=== PATIENT | male | born 1970 | race Caucasian/White ===

== ENCOUNTER → 2018-05-11 16:57 | Outpatient (CLI) | payer OTHER, SELFPAY ==
--- NOTE | 2018-05-11 16:59 | MRI_ITS ---
STUDY: MRI THORACIC SPINE WITHOUT CONTRAST REASON FOR EXAM: Male, 47 years old. Left subscapular back pain. TECHNIQUE: Standardized fat and water weighted pulse sequences were obtained in the sagittal and axial planes. COMPARISON: None. FINDINGS: Normal thoracic kyphosis. No scoliosis. Normal visualized thoracic cord. Normal conus medullaris that terminates at the T12-L1 level. T6-7: There is a small, central disc protrusion causing minimal indentation of the ventral thoracic cord. Remaining levels show no evidence of disc protrusion. Thoracic canal is normal in caliber. Foramina are patent at all thoracic levels. Degenerative disc changes are noted from T6 through T12. Multilevel Schmorl's nodes are noted. The soft tissue structures are unremarkable. MRI/Spine Thoracic (Routine) IMPRESSION: 1. Small disc protrusion at T6-7 with minimal cord indentation. 2. Mild degenerative disc changes. Electronically Signed: Sandy Garrison MD at 22:49 EST Tel , Service support ,
== END ==
PROVIDERS: Family Provider Family Medicine; PCP Family Medicine; Referring Provider Chiropractor; Visit Provider Chiropractor
DX: S23.3XXA Sprain of ligaments of thoracic spine, initial encounter (principal); S29.012A Strain of muscle and tendon of back wall of thorax, initial encounter
CPT/HCPCS: 72146

== ENCOUNTER 2018-09-07 13:14 | Outpatient (RCR) | payer OTHER, SELFPAY ==
--- NOTE | 2018-09-10 09:34 | HP.OTFCE_ITS ---
HP OT Functional Capacity Eval - Task Lift Floor (Occasional 1-33% of Day): 75 Floor (Frequent 34-66% of Day): 40 Floor (Constant 67-100% of Day): 16 Floor PDL: Medium-Heavy Knee (Occasional 1-33% of Day): 75 Knee (Frequent 34-66% of Day): 40 Knee (Constant 67-100% of Day): 16 Knee PDL: Medium-Heavy Waist (Occasional 1-33% of Day): 65 Waist (Frequent 34-66% of Day): 32 Waist (Constant 67-100% of Day): 13 Waist PDL: Medium Shoulder (Occasional 1-33% of Day): 65 Shoulder (Frequent 34-66% of Day): 40 Shoulder (Constant 67-100% of Day): 13 Shoulder PDL: Medium Overhead (Occasional 1-33% of Day): 50 Overhead (Frequent 34-66% of Day): 35 Overhead (Constant 67-100% of Day): 14 Overhead PDL: Medium Comments: Mild compensations noted with some of the tasks. Please refer below for further detail. - Work Activity/Posture Bending: Frequent Ability (34-66% of day) Squatting: Frequent Ability (34-66% of day) Kneeling: Frequent Ability (34-66% of day) Reaching out: Frequent Ability (34-66% of day) Reaching up: Frequent Ability (34-66% of day) Sitting: Frequent Ability (34-66% of day) Walking: Frequent Ability (34-66% of day) Standing: Frequent Ability (34-66% of day) - Reference Duration Sedentary Sedentary Light Light Light Medium Medium Medium Heavy Very Heavy Heavy Occasional (0-33% of day) Frequent (34-66% of day) Constant (67-100% of day) 10 # Negligible Negligible 15 # 8 # Negligible 20 # 10# Negli. 35 # 18 # 7 # 50 # 25 # 10 # 75 # 100 # >100 # 38 # 50 # >50 # 15 # 20 # >20 # - Patient Information Height: 1.78 m Weight:: 90.718 kg Hand Dominance: R BP (Medication Use/Usual Values per pt report): no - Medical History Medical History Including Restrictions: No medical restrictions provided by do shanel. Nicholas noted he called and doctor wanted to get 'baseline assessment' via patient report from Dr. Boyd (orthopedist he is seeing for back). He was referred for functional capacity evaluation by pain management Dr. Corbett. - Diagnoses Diagnoses: Current: Antione Salgado was injured while at work in December 2016 and most recently on February 20 2018. He noted he sprained thoracic spine both times while at work while lifting 40 lbs boxes of powder. His most recent injury occurred while he noted was working at [employer] on a new account for [employer]. Nicholas explained he had to had 40 lb. box on shoulder, was climbing up ladder that is attached to tank of sour cream, and was pouring mixture in sour cream one handful at a time. He noted having to climb 5 rungs to platform. He explained he moved wrong and sprained back. With further MRI confirmation of sprain of thoracic ligaments with small disc protrusion of T6-T7 with minimal cord and spine degenerative changes noted from T6-T12. Past Medical History (PMHx): Noted no significant past medical history. Did have past rotator cuff injury in 2010 to right shoulder. Current Medications: Nicholas noted he was not previously on medications until last week after following up with pain doctor, Dr. Corbett. He did not take medications prior to completing evaluation today. He did bring medications if needed but noted ' I think I can wait until afterwards'. The following are the listed medications he is currently talking: Medications. - meloxicam 7.5 mg 1x. 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 Generally, he noted having to lift between 20-60 lbs. According to job description provided by patient he needs to be willing to 60 on 'regular basis'. Further, Nicholas noted he frequently is standing throughout the day. He explained he stands for about 2 hours with 1x 15 min break, then 2 hours with 30 minutes lunch break, and then 2 hours 15 min break and 2 more hours prior to completing shift. He noted he has been on short term disability, [employer], since June 11, 2018. - Pain Pain: Nicholas is on pain management program with Dr. Corbett at [facility]. He noted directly after first work injury in 2016 that he started seeing Dr. Cash (chiropractor) for help with spine related pain and alignment. He explained Dr. Cash completed spine manipulation and ultrasound techniques which helped him heal. He noted after reinjury in 2018 he again started seeing Dr. Cash for three months but was not making progress and she referred for MRI which showed slight bulging disc at T6 to T7 and degenerative changes. He explained he was further referred to [facility] in which he saw Dr. Boyd who completed a cortisone injection around top of thoracic spine. Noted cortisone did not help and Dr. Boyd also referred to Dr. Corbett. Dr. Corbett has been completing injections which seemed to help per patient report and he has further injection scheduled for this . He did not receive physical therapy and was not referred by physicians and was instructed to complete rest to help thoracic spine heal. Pain at beginning of session with use of functional pain scale: 6/10 pain. Pain at ending of session with use of functional pain scale: 3/10. Pain: Yusra Pain Questionnaire is a self-report pain assessment to determine a patient?s accurate psychodynamics for accurate pain rating. A score of 30 or higher indicates poor psychodynamics and the greater probability of decreased accuracy with accurate pain reporting. Day 1: Pre- Yusra: 22. Post Yusra: 12. Some discrepancies as pain was reduced post evaluation. Nicholas did explain that standing and movement helps to manage pain symptoms and sitting typically increased symptoms. Both scores indicate good psychodynamics for pain reporting. Fear Avoidance Questionnaire (FAQ) is a client self-report assessment for 18-64+ that has shown to be reliable and valid for determining increased fear with movements. A score of 96 or higher indicates increased fear avoidance behaviors. FAQ Pre-testing: - Total: 59. - Physical Activity Subscale: 14. - Work Subscale: 27. FAQ Post testing: - Total: 55. - Physical Activity Subscale: 13. - Work Subscale: 25. Oswestry Neck and Low back questionnaire is a self-report assessment in which patients report their perceived level of disability based on their perceived pain. Oswestry : 15/50= 30 % impairment. Nicholas indicated good reliability of pain reporting based on assessment and reporting during session. - Work History Work History: Nicholas is currently on short-term disability from the [employer]. He noted he had been on Short-term disability since May,. 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 He provided job description for both. He explained he lifts between 20-60 lbs and is required to carry a load of 20-60 lbs up a ladder of 4-8 rungs to complete dumping into the tank. Nicholas further explained he works 8 hour shifts with 2x 15 min breaks and on 30 min break for lunch. Nicholas explained he stands for about two hours straight then receives first 15 min break, he works two more hours and receives 30-minute lunch break, then two hours followed by another 15 minutes break and then two hours and shift is completed. According to job description provided he is to be able to ?frequently? lift 60 lbs throughout the work day. - Behavioral Behavioral: Nicholas appeared motivated to go back to work but did voice concerns of ' I don't want to keep masking the pain and have it get worse' in regards to thoracic spine. He noted injections he has been receiving from Dr. Corbett have been helping but pain remains and issue with repetitive activities. - ADLS ADLS: Lives in split level home with . He has 6 steps to get into home and the 6 steps to get to top floor. He is still driving and completing all self- care at this time. He noted that he helps care for 20 lbs dog. He is currently on short-term disability through [employer] due to injury occurring in May,. - Physical Examination Physical Examination: The purpose of this functional capacity evaluation (FCE) was to determine Nicholas?s physical ability. 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 Aerobic limiting factor: 85% of max adjust HR= (220-age(47)) *.85= 147 bpm. Calculated max weight: 60% of weight= 120 lbs. Starting diagnostics. Blood Pressure: 114/83 mmHg. Heart rate: 82 bpm. Pulse Oximeter: 96% at room temperature ROM: Range of Motion: Thoracolumbar Spine with goniometer: -Flexion: 0-40. - Lateral rotation: R 0-82 , L 0-105. Thoracic spine with use of inclinometer: -Flexion: T1 0-139 , T12 0-125. oTotal flexion: ?10 degrees: 14 degrees. - Extension: T1 0-41 , LT12 0-19. oTotal extension: ?10 degrees: 22 degrees. Some tightness noted around thoracic spine with palpation. Noted no increased tenderness until upper thoracic spine. Nicholas explained tenderness to be 'mild' and not as serve as previous assessment with doctors. Some increased tightness with rotation to right side. 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 Strength: Strength: Strength measurements completed with use of manual muscle testing and short arm access of dynamometer. Results are as follows: Upper Body: Shoulder flexion: R 4+/5, L 5/5. Shoulder extension: R 4+/5, L 5/5. Shoulder abduction: R 5/5, L 5/5. Shoulder adduction: R 5/5, L 5/5. Shoulder Internal Rotation: R 5/5, L 5/5. Shoulder External Rotation: R 5/5, L 5/5. Elbow flexion: R 5/5, L 5/5. Elbow extension: R 5/5, L 5/5. Lower Body: Hip flexion: R 5/5, L 5/5. Hip adduction: R 5/5, L 5/5. Hip abduction: R 5/5, L 5/5. Knee Flexion: R 5/5, L 5/5. Knee extension: R 5/5, L 5/5. Plantarflexion: R 5/5, L 5/5. Dorsiflexion: R 5/5, L 5/5. Nicholas exhibited good rotator cuff integrity based empoty can tests. He hold with applied resistance and muscle do not break easily when reistsance is palced on them with manual muscle testing. Right Grades 1 Through 6 Teacher Strength Average: 99.66 Right Grades 1 Through 6 Teacher Strength Percentile: above 100th Left Grades 1 Through 6 Teacher Strength Average: 97.33 Left Grades 1 Through 6 Teacher Strength Percentile: above 100th Right Lateral Pinch Average: 25.00 Right Lateral Pinch Percentile: 90 th Left Lateral Pinch Average: 22.33 Left Lateral Pinch Percentile: 75 th Right Tripod Pinch Average: 29.33 Right Tripod Pinch Percentile: above 90th Left Tripod Pinch Average: 22.66 Left Tripod Pinch Percentile: 90 th Comments: The above disaster recovery coordinator and pinch testing were consistent in effort as the coefficient of variation is below 15% of all. Five Span Grades 1 Through 6 Teacher testing on Dynamometer: Position 1: R 64 , L 49. Position 2: R 123 , L 100. Position 3: R 120 , L 114. Position 4: R 110 , L 105. Position 5: R 97 , L 85. A coefficient of variation greater than 15 % indicated decreased consistency of effort. Coefficient of variation: R .233= 23%, L .282= 28%. Consistency of Effort: inconsistent effort Sensation: Sensory Testing: Sensation testing completed on bilateral hands/ feet with monofilament touch test. A score of normal on touch test is 2.83 and within normal range with just some discrepancies for light touch is between 3.22-3.61. The higher the number in more complications related to patient?s ability to perceive touch related sensory stimuli. R hand: 2nd 2.83 , 3rd 2.83 , 4th 3.22 , 5th 2.83 , thumb 2.83. L hand: 2nd 2.83 , 3rd 2.83 , 4th 2.83 , 5th 2.83 , thumb 2.83. Denies numbness and tingling in toes. Noted no current numbness around rib area. Fine Motor: Fine motor: Completed the Purdue Pegboard test to further determine the patient?s ability to complete 2-3 step tasks, assess fine motor control and general dexterity needed to complete assembly like work. The results are as follows for one trial only: Right Hand: 15. -Percentile: 42 nd. Left Hand: 14. -Percentile: 38th. Both Hands:12. -Percentile: 48. R+ L+ Both: 41. - percentile: 36th. Assembly: 10. -percentile: 1st Balance: Balance: Sharpened Romberg is a sensory related balance test that can assess both vestibular and nonvestibular related balance conditions. This test can be used for higher level off the ground balance with eyes open and eyes closed. Shoes were on for testing. Eyes open: Feet Together: pass. Semi- Tandem: pass. Tandem: pass. Eyes- Closed: Feet Together: pass. Semi- Tandem: had 1x Loss of balance to R side. Tandem: Pass had 1x Loss of balance to R side. Mild loss of when eyes closed. Still able to complete self-0righting and correction to regain balance. Functional reach test is used to determine static balance in patients. A score of 15 is normal and less than 10 increases risk of falling. A score of 6 or less significantly increases a patient?s risk of falling. [place] 1: 12. [place] 2: 12. [place] 3: 11.5. Average: 11.8. Static balance is intact. Functional Gait Assessment (FGA) is a dynamic balance test to determine vestibular functioning and general dynamic balance ability of patient 18-65+. This assessment can be used with clients of various backgrounds to determine functional dynamic balance needed to complete every day work related tasks. 1.Gait Level Surface: 2. 2.Change in Gait Speed: 3. 3.Gait with horizontal head turns: 3. 4.Gait with vertical head turns:2. 5.Gait and pivot turn:3. 6.Step over obstacle:3. 7.Gait with narrow base of support: 3. 8.Gait with eyes closed: 3. 9.Ambulating Backwards: 3. 10.Steps: 3. Total Score: 28/maximum score 30. Heart rate prior to beginning with use of pulse oximeter: 95 bpm. Heart rate post stairs with use of pulse oximeter: 103 bpm. Based on performance with age related peers on the functional gait assessment, Nicholas, scored one standard deviation or within the ramirez curve of his age-related peers. This indicates that he is within the normal distribution for dynamic based tasks based on his age-related peers. - Non Material Handling Activities Bending: Repetitive movement tasks: Heart rate prior to beginning with use of pulse oximeter: 94 bpm. 3x, 10x in 28 seconds, and 10x faster in 19 seconds. Nicholas exhibited full bend with fair body mechanics. Some compensation and mechanical deficits noted with increased thoracic flexion during tasks. Heart rate increased due to exertion as report pain remains consistent. He exhibited ability to frequently complete bending ability. Heart rate posttest with use of pulse oximeter: 112. Perceived pain: 3/10 Squatting: Heart rate prior to beginning with use of pulse oximeter: 94 bpm. 3x, 10x in 21 seconds, and 10x faster in 17 seconds. Completed squatting with equal weightbearing to bilateral lower extremity and good body mechanics. Observed to hold breath after first two squats and then able to regulate. Completed with mild compensations for spinal alignment with exhibiting increased mild thoracic extension and ability to complete 75% of full squat. No increase in pain observed. Able to complete squatting frequently at this time. Heart rate posttest with use of pulse oximeter: 130 bpm. Perceived pain: 3/10 Kneeling: Heart rate prior to beginning with use of pulse oximeter: 119 bpm. 3x, 10x in 28 seconds, and 10x faster in 25 seconds. Completed fair body mechanics to complete kneel to right lower extremity with slight compensations noted to completion of mild right lateral leaning with task. He exhibited full kneel ability. Slight increase in heart rate observed but is believed to be due to exertion as pain did not increase with task per patient report. He exhibited ability to complete kneeling frequently. Heart rate posttest with use of pulse oximeter: 128 bpm. Perceived pain:3/10 Reaching out/up: Repetitive movement tasks: Heart rate prior to beginning with use of pulse oximeter: 126 bpm. Reaching out from standing position: 3x, 10x in 20 seconds, and 10x faster in 13 seconds. Reaching up from standing po sition: 3x, 10x in 18 seconds, and 10x faster in 13 seconds. Heart rate posttest with use of pulse oximeter: 130 bpm. Perceived pain: 3/10. Nicholas exhibits good spinal alignment and good body mechanics for task. He completed with full reach for outward and upward movements. Walking: Heart rate prior to beginning with use of pulse oximeter: 94 bpm. Completed mild antalgic gait to right side but is able to self-correct and is able to maintain good spinal alignment throughout tasks. He completes ambulation without use of assistive device or additional supports. Nicholas exhibited the ability to complete 100 yards walk test in 62 seconds; able to get to 3.0 mph on treadmill for 18 mins and then was able to complete total walking around facility for 40 mins. Heart rate posttest with use of pulse oximeter: 101 bpm. Perceived pain: 3-4/10 Standing: Nicholas completed standing with both static and dynamic tasks for 73 minutes during session. Completed 23 minutes and then break and then 50 minutes. 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 He exhibited the ability to complete frequent standing related tasks. Sitting: Nicholas is able to sit in supportive arm chair for 30 minutes at start of session. Noted pain typically is worse when sitting. Pain 4/10 when sitting in chair and observed to need to switch positions. Mechanical changes observed with him sitting diagonal in chair with lateral leaning to right side to promote pain relief and management. Compensations of two weight shifts observed. He exhibits frequent ability to sit with need for compensations to manage symptoms. Climbing Stairs: Starting heart rate with use of pulse oximeter: 95 bpm. Blood pressure prior to stairs: 119/75 mmHg. 100 stairs within 8 mins. Completed stairs with alternating foot pattern and no use of handrails. Noted that when at work they are required to have three point of contact with use of one handrail. Completed with good spinal alignment. Based on performance he is able to complete stairs frequently. Blood Pressure: 136/87 mmHg. Ending Heart rate with use of pulse oximeter: 103 bpm. Pain 3/10 - Dynamic Occasional Lifting Capacity Floor Lift: Occasional Liftinx 75 lbs. Frequent liftinx 40 lbs lbs. Fair body mechanics. When weight was higher noted some decreased body mechanics and increased compensations and mechanical changes with increased load displacement to bilateral upper extremity rather than to bilateral lower extremity with lift off. Equal weightbearing observed to bilateral lower extremities. Mild mechanical changes observed with slight right sided lateral leaning. Pain 3/10. Heart rate 133 bpm Knee Lift: Occasional Liftinx 75 lbs. Frequent liftinx 40 lbs. Completed knee/power lift with good body mechanics. Equal weightbearing observed to bilateral lower extremities. With higher weight increased compensation of increased load distribution of lift off through bilateral upper extremities placing increased load on thoracic spine. Able to self-correct after cue from therapist. Some increase in heart rate noted but report of pain consistent. Increase in heart rate believed to be due to exertion. Pain 3/10. Heart rate post task: 153 bpm- increase in heart rate. Standing break initated but no abnormal signs observed. Heart rate decrease within 15-30 s standing break. Waist Lift: Occasional Liftinx 65 lbs. Frequent liftinx 35 lbs. Completed with fair body mechanics. Completed with equal weightbearing to bilateral lower extremity. Completed with mild compensations of holding breath. Pain maintained at 3/10. Pain 3/10. Heart rate post task: 138 bpm Shoulder Lift: Occasional Liftinx 65 lbs. Frequent liftinx 35 lbs. Completed with fair body mechanics. Completed with equal weightbearing to bilateral lower extremity. Observed to hold breath 1x and then released. Comp leted with maintaining heart rate and pain. No increase shortness of breath observed. Pain 3/10. Heart rate post task: 139 bpm Overhead Lift: Occasional Liftinx 50 lbs. Frequent liftinx 35 lbs. Completed with fair body mechanics and equal weightbearing to bilateral lower extremities. Mild compensations of increased trunk extension observed to place load above head. Completed with use of lower handles on box and attempted 2x as he would at work with no handles. Completed with mild mechanical changes. No increase in pain observed or reported. Pain: 08/02 Carrying: Occasional Liftinx 45 lbs for 20 feet. Frequent liftinx 30lbs for 20 feet. Completed carrying tasks for 20 feet. Completed equal weightbearing to bilateral lower extremity for 10 feet and the mild compensation as task continued of load placement to right side. Completed with mild mechanical changes. Per patient report he normally 'uses machinery or roz' to move loads which require more push/pull ability. Completed push/ pull of non- weighted sleigh, approximately 25 lbs, on carpet surface. With increased friction this is approximately 30 lbs. Push/Pull ability is not indicated in job description provided by patient, but Nicholas did note he does have to complete throughout the day. Completed with equal weightbearing to bilateral upper and lower extremity. Mild compensations observed with flexion of cervical and thoracic spine during pull and extension with pushing. If further push/pull ability is needed to be evaluated further assessment can occur as needed. Comments: Ladder Climbing: Completed climbing ladder 5x 4 rungs of four foot ladder. Completed with mild compensations of slightly increased thoracic extension and cervical flexion to look to end point. Did not complete with load and Nicholas reports a platform that load is placed prior to climbing task. HR: 142. Ending diagnostics returned to normal values at end of session. Explained to Nicholas reprot wuld be done and sent to [facility], Dr. Corbett but he would need to obtain copy from Medical Records for Dr. Boyd.
--- NOTE | 2018-09-10 09:34 | HP.OTFCE.D ---
FCE D/C Summary - Discharge JANICE NUNO was seen for a one time visit for an FCE on 09/07/18 and is discharged.
== END 2018-09-07 19:00 | disposition home or self-care (01) ==
LOC: OT 13:14
PROVIDERS: Family Provider Family Medicine; PCP Family Medicine; Referring Provider Anesthesiology Pain Medicine; Visit Provider Anesthesiology Pain Medicine
DX: S23.3XXD Sprain of ligaments of thoracic spine, subsequent encounter (principal); S23 Dislocation and sprain of joints and ligaments of thorax
CPT/HCPCS: 97750

== ENCOUNTER 2018-11-17 09:00 | Outpatient (RCR) | payer OTHER, SELFPAY ==
--- NOTE | 2018-10-06 10:53 | HP.PTEVAL ---
Patient's Visit Information JANICE NUNO is a 48 year old M referred to Physical Therapy by Luciano Corbett MD with a diagnosis of Neck pain, thoracic pain.. Date of Evaluation: 10/06/18 Physical Therapist: Josep Haskins, DPT, OCS, CSCS - Visit Plan Frequency: 3x /Week Duration: 2 Months Plan: 3x/week for 4-8 weeks for. 1. T/S rotationa dn cervical ext adn rotation ROM and mobs. aggressive stretching. 2. postural and scapular strength. 3. 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 - Subjective Findings: goes by [employer]. Sprianed back in 2017 and again 2018 and pain never went away. has had cortisone shots, epidurals, TP, and pain persists L scapula and times in thoracic spine which the epidural did seem to help. The L scapular pain persists. Dr. Corbett has been talking about neck being part of the problem. The scapular pain started in February with sprain while lifting 50# box and climbing a ladder. Works at [employer]. This gets done once per week. Sleep is not interrupted if he sleeps on side. Lying on back can hurt. Sitting > 15 minutes hurts. Is off work now due to this. 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 Doctor won't let him do anything for work since Mid May. Was on light duty [employer] to May. Better since injections but L scap persists. Pain ranges 4-5/10 down to 2/10. pain is up and down. Not sure why it gets worse at times. Mom had a heart attack last week. Basic ADLs are OK, painful with them at times. Hobbies: Watches kids events. Filling days currently is hard. Doctor allows him on treadmill adn does odd stuff like dusting adn sweeping. Not worse with these aactivities. Standing at sink doing dishes can make him worse. Coughing/sneezing not identified as a problem. - Pain L scapula pain. Pain Intensity (Out of 10): 2 Pain Intensity Range: 2, 6 Comment: constant since last February. - Objective Posture: Forward head and forward scapular posture. Tender to touch L UT area into rhomboids. reflexes 2/3 bi and tri B. Sensation UE/LE WNL to gross light touch. Strength UE 4+/5 UE without myotomal abnormalities. c/s AROM 50 ext slight discomfort L scap, SB full and painfree, B rotation 55 degrees adn without increased pain. - c/s compression. Repeated motion testing: protrusion increases 1/10 baseling L scapula to 2/10. retraction: NE. ret/ext with OP: increased ROM, NE pain. L rotation with OP:NE pain, NE ROM. R rotation with OP:NE pain, NE ROM. T/S ext:NE mildly limited. L T/s rot limited adn painful vs R, NE with repeated motion L rot T/S. Transfers adn gait are I and appear normal. - Goals Goal 1:: Full c/s AROM without pain and L throacic full rotation ymmetrical to R without pain. Goal Time Frame: 4-6 Weeks Goal 2:: Patient feel pain 0-1/10 at all times and 75% improved. Goal Time Frame: 4-6 Weeks Goal 3:: Do all home chores including yard work and sweeping withotu feeling worse. Goal Time Frame: 4-6 Weeks Goal 4:: pt feeling well enough to contemplate return to work. Goal Time Frame: 6-8 Weeks Goal 5:: <10% disability on neck oswestry Goal Time Frame: 4-6 Weeks - Rehabilitation Potential Physical Therapy Diagnosis: thoracic/scapular pain muscular vs disc. Rehabilitation Potential: Questionable - Anticipated Interventions Patient/Client Instruction: Educate patient on: Condition, Plan of Care For the Purpose of:: To decrease pain, To increase ROM, To increase tolerance to activity/condition/position, To improve ability of physical actions for home/community/work/leisure Therapeutic Exercise to Include: Strength training, Postural training, Flexibilty training, Passive ROM, Active ROM, Scapular Strength/Stabilization For the Purpose of:: To decrease pain, To increase ROM, To improve muscle performance and motor function Manual Therapy Techniques to Include: Mobilization, Soft tissue mobilization For the Purpose of:: To decrease pain, To increase ROM Thank you for the opportunity to evaluate your patient. For Medicare and Medicare HMO plans, please review the plan of care and approve it. It will need to be FAXED BACK to us at [phone] for Medicare purposes. For Medicare only, by signing this I certify the plan of care. Please let me know if there are questions or concerns regarding this plan of care. Physician Signature: Date:
--- NOTE | 2018-11-04 11:29 | HP.PTREVAL ---
Luciano Corbett MD, It has been my pleasure to treat JANICE NUNO over the last 13 visits for Neck pain, thoracic pain.. Please see the progress note below for an update on the physical therapy plan of care! Subjective: Back pain is about the same as what it was. No better or worse with exercises. 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 Sitting is not good. L scapular pain. 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 Pain is down overall from 5-6/10 to 2-3/10. Had epidurals and pain moves up back a little bit. Will have to go back to work in November for insurance purposes. Objective/Function: 65 degrees B rotation, 53 ext, no pain. L thoracic rotation limited and painful L scap vs R slightly. Still slightly tender medial to L scapula to touch. Somewhat improved and progressing but patient frustrated with slowness of the process and wants to know other options whcih he may contact doctor regarding. Is willing and motivated to cotninue PT for ROM and strengtha nd body mechanics as he has to return to work next month. Plan Plan: 3x/week for 4 weeks for. 1. body mechanics and postural focus and exercises. 2. Aggressive L thoracic rotation manual stretches. 3. Work simulation strengthening. Pt to contact doctor regarding other approriate options as he needs to return to work in November for inusrance purposes Goals Goal 1:: Full c/s AROM without pain and L throacic full rotation ymmetrical to R without pain. Goal Time Frame: 4-6 Weeks Goal 2:: Patient feel pain 0-1/10 at all times and 75% improved. Goal Time Frame: 4-6 Weeks Goal Progress: Progressing Goal 3:: Do all home chores including yard work and sweeping withotu feeling worse. Goal Time Frame: 4-6 Weeks Goal Progress: Not doing Goal 4:: pt feeling well enough to contemplate return to work. Goal Time Frame: 6-8 Weeks Goal Progress: Progressing Goal 5:: <10% disability on neck oswestry Goal Time Frame: 4-6 Weeks Goal Progress: Progressing Anticipated Interventions Patient/Client Instruction: Educate patient on: Condition, Plan of Care For the Purpose of:: To decrease pain, To increase ROM, To increase tolerance to activity/condition/position, To improve ability of physical actions for home/community/work/leisure Therapeutic Exercise to Include: Strength training, Postural training, Flexibilty training, Passive ROM, Active ROM, Scapular Strength/Stabilization For the Purpose of:: To decrease pain, To increase ROM, To improve muscle performance and motor function Manual Therapy Techniques to Include: Mobilization, Soft tissue mobilization For the Purpose of:: To decrease pain, To increase ROM Please do not hesitate to contact me at [phone] by phone or if you have questions or concerns regarding this new plan of care! Sincerely, Josep Haskins, DPT, OCS, CSCS
--- NOTE | 2018-11-19 18:35 | HP.PT.NRP ---
HP - Discharge Summary (1) - Patient Information JANICE NUNO was seen in my office for initial evaluation on 10/06/18. The following Plan of Care was established for this patient: Initial Frequency: 3x /Week Initial Duration: 2 Months - Anticipated Interventions Patient/Client Instruction: Educate patient on: Condition, Plan of Care For the Purpose of:: To decrease pain, To increase ROM, To increase tolerance to activity/condition/position, To improve ability of physical actions for home/community/work/leisure Therapeutic Exercise to Include: Strength training, Postural training, Flexibilty training, Passive ROM, Active ROM, Scapular Strength/Stabilization For the Purpose of:: To decrease pain, To increase ROM, To improve muscle performance and motor function Manual Therapy Techniques to Include: Mobilization, Soft tissue mobilization For the Purpose of:: To decrease pain, To increase ROM This patient was last seen in our office 11/17/18. Pertinent comments regarding their Physical therapy will appear below: Pt seen 19 visits of POC adn has called to cancel all visits stating doctor is cancelling therapy. i will discotninue at this time at patient's request. At this point I will be discontinuing this patient from physical therapy. I would be happy to see this patient again in the future if found appropriate by the physician. Thank you! Josep Haskins, DPT, OCS, CSCS
== END 2018-11-17 19:00 | disposition home or self-care (01) ==
LOC: PT 09:00
PROVIDERS: Family Provider Family Medicine; PCP Family Medicine; Visit Provider Anesthesiology Pain Medicine
DX: M54.2 Cervicalgia (principal); M54.6 Pain in thoracic spine
CPT/HCPCS: 97110; 97140; 97162; 97530

== ENCOUNTER 2019-01-07 17:00 | Outpatient (RCR) | payer OTHER, SELFPAY ==
--- NOTE | 2018-12-01 14:19 | HP.PTEVAL_ITS ---
Patient's Visit Information JANICE NUNO is a 48 year old M referred to Physical Therapy by YONY BOYD with a diagnosis of IVDD, T/S sprain of ligament. Date of Evaluation: 12/01/18 Physical Therapist: Josep Haskins, DPT, OCS, CSCS - Visit Plan Frequency: 3x /Week Duration: 4-6 Weeks Plan: 3x/weeek for 3-6 weeks for : 1. yoga flow stretching of lats and thoracic rotators. 2. gym based postural strength, LE strength and work simulation for bending , climbing, carrying objects. - Subjective Findings: Feeling better overall. Not sure why. Has been doing bands at home adn had massage last week. Feeling 85% back to normal. Takes advil every now and then. No pain today. Pain in the last week to 3/10 under l shoulder blade. Using GTB at home and blue. Doing chops with PTB. 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 Got hurt carrying boxes up a ladder last January and 50#. Sleeping is OK as long as he takes muscle relaxer before bed. Not back to work but considering getting back to it before December 24. Has surgical consult for T6/7 on 12/14/18. Oliver on 11/11 wanted to stop therapy but agreeable to strength. Activities at home are getting back to normal but still doing walking routine on . Nto doing much around house. Doctor told him not to do much at home until further notice. Will need workability report from Dr. Boyd after surgical consult. Paty get injection in July. - Objective c/s ext 70, rotation 80 without pain. L T/S rotation min limited with slight L scap pain. R t/s rotation not painful or limited. Core strength 3+ flexion adn 4- ext. Posture is flexed in T/S and L/S but corrects with VC to correct psoition. L scapula medial border slightly tender. UE AROM WFL and symmetrical , IR and Ext rotation slightly uncomfortable on L but 4+/5 in all UE movements. reflexes 2//3 bi and tri adn patella and achilles. Sensation UE WNL to gross light touch. Walks normal and good balance. Tightness evident in HS and gastroc and lats B. - Goals Goal 1:: Pain1/10 in L scapula at worst and 95% better. Goal Time Frame: 4-6 Weeks Goal 2:: Patient return to work without worsening pain. Goal Time Frame: 4-6 Weeks Goal 3:: Patient back to full workout in gyma nd HEP without noticeable pain increase to tolerate RTW. Goal Time Frame: 4-6 Weeks Goal 4:: <10% disability on oswestry back Goal Time Frame: 4-6 Weeks - Rehabilitation Potential Physical Therapy Diagnosis: Thoracic sprain. Rehabilitation Potential: Good - Anticipated Interventions Patient/Client Instruction: Educate patient on: Condition, Plan of Care For the Purpose of:: To decrease pain, To improve muscle performance and motor function, To improve ability of physical actions for home/community/work/leisure Therapeutic Exercise to Include: Strength training, Flexibilty training, Passive ROM, Active ROM For the Purpose of:: To decrease pain, To increase ROM, To improve muscle performance and motor function, To improve ability of physical actions for home/community/work/leisure Thank you for the opportunity to evaluate your patient. For Medicare and Medicare HMO plans, please review the plan of care and approve it. It will need to be FAXED BACK to us at [phone] for Medicare purposes. For Medicare only, by signing this I certify the plan of care. Please let me know if there are questions or concerns regarding this plan of care. Physician Signature: Date:
--- NOTE | 2019-01-07 17:26 | HP.PTDCSUM ---
HP - PT D/C Summary It has been my pleasure to treat JANICE NUNO under orders from YONY DAVID, for the diagnosis of IVDD, T/S sprain of ligament for a total of 14 visit(s). Discharge Date: 01/07/19 Please see the following information for a summary of their discharge status. - Subjective Subjective: Back to work. Heat is draining. Overall it has not suffered going back to work as far as pain goes. Gets shots of pain every now and then like lifting [place] 40# agitator and it hurt for a transient 2/10. Feels pretty good most of the rest of the time. No problems unless lifting oddly. This is second week back. Stretching at home daily. sleeping is not great but not convinced it is due to pain. Activities at home are mostly normal. 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 No f/us with any doctor until May. No more gym at work so no plan to work out. - Pain L scapula area Pain Intensity (Out of 10): 1 - Overall Improvement % Improvement: 85 - Objective Objective/Function: Full aROM L/S without pain, good t/s rotation without increased pain. Full c/s AROM without pain. Strength LE 4+/5, steps normal without weakness. - Goals Goal 1:: Pain1/10 in L scapula at worst and 95% better. Goal Progress: Progressing Goal 2:: Patient return to work without worsening pain. Goal Progress: Goal Met Goal 3:: Patient back to full workout in gyma nd HEP without noticeable pain increase to tolerate RTW. Goal Progress: no more gym Goal 4:: <10% disability on oswestry back Goal Progress: Goal Met - Plan Plan: d/c - D/C Information Discharge Comments: Doing well adn will continue stretches at home, monitor body mechanics and strength when tolerated. Will contact doctor if pain returns. If there are questions or concerns regarding this patient's physical therapy, please feel free to call me at [phone]. Thank you for the referral of this patient. Sincerely, Josep Haskins, DPT, OCS, CSCS
== END 2019-01-07 19:00 | disposition home or self-care (01) ==
LOC: PT 17:00
PROVIDERS: Family Provider Family Medicine; PCP Family Medicine
DX: S23.3XXD Sprain of ligaments of thoracic spine, subsequent encounter (principal); S29.012D Strain of muscle and tendon of back wall of thorax, subsequent encounter; M51.24 Other intervertebral disc displacement, thoracic region
CPT/HCPCS: 97014; 97110; 97164; 97530; G0283

== ENCOUNTER 2019-03-22 17:30 | Outpatient (RCR) | payer OTHER, SELFPAY ==
--- NOTE | 2019-02-25 18:39 | HP.PTEVAL_ITS ---
Patient's Visit Information JANICE NUNO is a 48 year old M referred to Physical Therapy by Luciano Corbett MD with a diagnosis of NECK PAIN ,THORACIC PAIN. Date of Evaluation: 02/25/19 Physical Therapist: Ren Mendez PT, Cert MDT, OCS - Visit Plan Frequency: 2x /Week Duration: 4 Weeks Plan: PT INTERVENTIONS THORACIC AND CERVICAL POSTURAL STRENGTHENING ,MANUAL THERAPY. MOBILIZTION - Subjective Findings: This 48 y/o male presents to physical therapy with neck and thoracic pain Patient injuried thoracic spine pushing 200 # pump. Patient had immediate pain. Patient had chiropractor with passive modalities. RTW November ,then Jan 2018 light duty 3 months then tried full duty unable to return work . Patient injuried thoracic spine carrying 50# box on ladder cause more pain then unable to do full duty . Patient been under pain managemnet ,2 epidural injection thoracic,trigger point /facet in T -spine. Also ,patient seen for PT to include work conditiong. Patient then had FCE 2018 . Pateint return to work December 21 fully duty. Patient plans to have facet injections. 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 Patient had consult with spine DR Lenz for surgery but not candidate. Patient conts to intermitant pain between shoulder blades 6-7. Patient c/o tightness . Denies parathesia/tingling. Coughing/sneezing increasing symptoms . Aggravating heavy lifting ,bending ,sitting ,driving couple hours. Allevaiting factors standing ,walking. Patient pain affects sleeping. Patient pain affects job demands and housework tasks. SOCIAL: . VOCATION: [employer] - Pain Bilateral Back Pain Intensity (Out of 10): 2 Pain Intensity Range: 10 Comment: 4/10 in work R OR L - Objective POSTURE: mild foward posture. GAIT: reciprocal pattern. PALAPTION: unremarkable. NEURO: INTACT. AROM: WFL BUE. MMT: BUE 5/5 SHOULDERS 4/5. CERVICAL ROM: flexion WFL,extension min loss,rotation/rotation min loss,retraction WFL. THORACIC ROM: flexion min loss ,rotation min loss ,extension min loss ERP. ASSESSORY: thoracic moblity mild tight - Special Tests C/S Radiculapathy - Left Upper limb tension test: Negative C/S Radiculapathy - Right Upper limb tension test: Negative C/S Radiculapathy - Left Spurlings: Negative C/S Radiculapathy - Right Spurlings: Negative C/S Radiculapathy - Left Cervical distraction: Negative C/S Radiculapathy - Right Cervical distraction: Negative Sharp Maame: Negative Vertebral Artery Test: Negative Alar Ligament Test: Negative Cervical Sitting: Protrusion - Mechanical Response: No effect Cervical Sitting: Protrusion - Symptoms During Testing: No effect Cervical Sitting: Protrusion - Symptoms After Testing: No effect Cervical Sitting: Retraction - Mechanical Response: No effect Cervical Sitting: Retraction - Symptoms During Testing: Decreases Cervical Sitting: Retraction - Symptoms After Testing: No effect Cervical Sitting: Retraction-Extension - Mechanical Response: No effect Thoracic Sitting: Flexion - Mechanical Response: No effect Thoracic Sitting: Flexion - Symptoms During Testing: No effect Thoracic Sitting: Flexion - Symptoms After Testing: No effect Thoracic Sitting: Extension - Mechanical Response: No effect Thoracic Sitting: Extension - Symptoms During Testing: Increases Thoracic Sitting: Extension - Symptoms After Testing: No worse - Goals Goal 1:: Independant with HEP Goal Time Frame: 4-6 Weeks Goal 2:: Patient to be Independant wityh posture/body mecahanics. Goal Time Frame: 4-6 Weeks Goal 3:: Patient to decrease lumbar pain by 70% or > to improve job demnads . Goal Time Frame: 4-6 Weeks Goal 4:: Patient to improve lumbar and thoracic ROM for function of recovery for job demnads. Goal Time Frame: 4-6 Weeks Goal 5:: Patient to be improve neck owestry scor by 5 points or > to improve job demnads Goal Time Frame: 4-6 Weeks - Rehabilitation Potential Physical Therapy Diagnosis: This 48 y/o male has thoracic pain due to work related injury 2018 . Patient had MRI showed HNP . Patient has pain with sitting and job demands with lifting . Rehabilitation Potential: Good - Anticipated Interventions Patient/Client Instruction: Educate patient on: Condition, Plan of Care For the Purpose of:: To decrease pain, To increase ROM, To improve muscle performance and motor function, To increase tolerance to activity/condition/position, To improve ability of physical actions for home/community/work/leisure, To improve gait and locomotor functions, To improve health of tissue, To increase flexibility/ROM, To improve ability to perform t asks related to life management Therapeutic Exercise to Include: Strength training, Body mechanics, Postural training, Flexibilty training, Active ROM, [place] Exercises For the Purpose of:: To decrease pain, To increase ROM, To improve muscle performance and motor function, To increase tolerance to activity/condition/position, To improve ability of physical actions for home/community/work/leisure, To improve health of tissue, To decrease soft tissue restriction, To increase flexibility/ROM, To improve ability to perform tasks related to life management Manual Therapy Techniques to Include: Mobilization For the Purpose of:: To decrease pain, To increase ROM, To improve health of tissue, To decrease soft tissue restriction Thank you for the opportunity to evaluate your patient. For Medicare and Medicare HMO plans, please review the plan of care and approve it. It will need to be FAXED BACK to us at [phone] for Medicare purposes. For Medicare only, by signing this I certify the plan of care. Please let me know if there are questions or concerns regarding this plan of care. Physician Signature: Date:
--- NOTE | 2019-05-28 08:41 | HP.PTDCSUM ---
HP - PT D/C Summary It has been my pleasure to treat JANICE NUNO under orders from Luciano Corbett MD, for the diagnosis of NECK PAIN ,THORACIC PAIN for a total of 6 visit(s). Discharge Date: Please see the following information for a summary of their discharge status. - Subjective Subjective: Doing about same - Pain Bilateral Back Pain Intensity (Out of 10): 2 - Overall Improvement % Improvement: 20 - Objective Objective/Function: POSTURE : mild foward posture. PALAPTION: TENDER UT/LEVATOR. CERVICAL ROM: flexion min loss,extension min loss,lateral flexion mod loss. MMT: BUE 4/5. 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 Goal Progress: Goal Met Goal 3:: Patient to decrease lumbar pain by 70% or > to improve job demnads . Goal Progress: Progressing Goal 4:: Patient to improve lumbar and thoracic ROM for function of recovery for job demnads. Goal Progress: Progressing Goal 5:: Patient to be improve neck owestry scor by 5 points or > to improve job demnads Goal Progress: Progressing - Plan Plan: D/C - D/C Information If there are questions or concerns regarding this patient's physical therapy, please feel free to call me at [phone]. Thank you for the referral of this patient. Sincerely, Ren Mendez, PT, Cert MDT, OCS
== END 2019-03-22 19:00 | disposition home or self-care (01) ==
LOC: PT 17:30
PROVIDERS: Family Provider Family Medicine; PCP Family Medicine; Referring Provider Anesthesiology Pain Medicine; Visit Provider Anesthesiology Pain Medicine
DX: M54.2 Cervicalgia (principal); M54.6 Pain in thoracic spine
CPT/HCPCS: 97014; 97162; 97530; G0283

== ENCOUNTER → 2023-03-25 | Outpatient (CLI) | payer OTHER, SELFPAY ==
--- NOTE | 2023-03-25 12:44 | VDLE_ITS ---
Reason For Study: pain RIGHT GSV is normal. CFV is compressible, spontaneous, phasic, competent and demonstrates normal augmentation. FV is compressible, spontaneous, phasic, competent and demonstrates normal augmentation. POP V is compressible, spontaneous, phasic, competent and demonstrates normal augmentation. T/P Trunk is compressible. PTV is compressible. RT PerV is compressible. Procedure This is a venous duplex using B-mode, color flow and spectral Doppler. Exam performed in department. The exam was abbreviated due to the COVID 19 protocol. The exam was diagnostic. A preliminary report was called and/or faxed to Dr. Whitaker's office. VL/Venous Duplex US, Unilateral Interpretation Summary Deep veins of the right lower extremity are patent and compressible segmentally . There is no evidence of right lower extremity deep vein thrombosis. Valvular competence andrew ears intact within the proximal deep venous system on the right . The right great saphenous vein a ppears patent and compressible segmentally. Ordering Physician: Rubin Whitaker Performed By: Ang Fisher RVT
== END | disposition home or self-care (01) ==
LOC: CVS 12:43
PROVIDERS: PCP Family Medicine; Referring Provider Orthopaedic Surgery; Visit Provider Orthopaedic Surgery
DX: M79.661 Pain in right lower leg (principal)
CPT/HCPCS: 93971

== ENCOUNTER → 2024-05-10 | Outpatient (CLI) | payer OTHER, SELFPAY ==
--- NOTE | 2024-05-10 16:32 | MRI_ITS ---
STUDY: MRI THORACIC SPINE WITHOUT CONTRAST REASON FOR EXAM: Male, 53 years old. DISC DISPLACEMENT THORACIC TECHNIQUE: Standardized fat and water weighted pulse sequences were obtained in the sagittal and axial planes. COMPARISON: May 11, 2018 FINDINGS: Normal kyphosis of the thoracic spine. There is no substantial scoliosis. No evidence for acute fracture or subluxation.. Multiple level Schmorl''s node deformities are noted. There is mild multilevel degenerative disc disease noted extending from T6 to T12.. There is a small central disc protrusion at T6-7 mildly narrowing the central canal and minimally impinging upon the cord.. Normal visualized thoracic cord. Normal conus medullaris that terminates at T12-L1 The soft tissue structures are unremarkable. The disc protrusion at T6-7 has increased slightly in size since prior No other significant interval change MRI/Spine Thoracic (Routine) IMPRESSION: Persistent small central disc protrusion at T6-7 which is increased slightly in size and mildly narrowing the central canal impinging upon the cord Otherwise no significant change since prior exam. Electronically Signed: Valentino Lauren MD at 17:59 EST ,
== END | disposition home or self-care (01) ==
PROVIDERS: PCP Nurse Practitioner Primary Care; Referring Provider Clinical Nurse Specialist Adult Health; Visit Provider Clinical Nurse Specialist Adult Health
DX: M51.24 Other intervertebral disc displacement, thoracic region (principal)
CPT/HCPCS: 72146